=== PATIENT | male | born 1990 | race African-American/Black ===

== ENCOUNTER 2025-04-24 14:19 | Emergency (ER) | payer SELFPAY ==
[~2025-04-24 14:19] MED LIST: Iopamidol-370 76% 500 ML MDV (1 ML CHARGE) ONE
[2025-04-24] MEDS ORDERED: Ketorolac Tromethamine 30 MG (1 mL) VIAL ONE (16:16)
[2025-04-24 17:05] LABS: #Basophils 0.07 10x3/uL (0.0-0.2); #Eosinophils 0.38 10x3/uL (0.0-0.7); #Monocytes 0.85 10x3/uL (0.11-0.59); #Neutrophils 5.56 10x3/uL (1.40-6.50); %Basophils 0.7 % (0.0-1.0); %Eosinophils 3.6 % (0.0-10.0); %Lymphocytes 34.6 % (21.0-51.0); %Monocytes 8.1 % (0.0-10.0); %Neutrophils 52.7 % (42.0-75.0); Hematocrit 42.4 % (42.0-52.0); Hemoglobin 14.1 g/dL (14.0-18.0); Mean Corpuscular Hemoglobin 33.6 pg (27.0-31.0); Mean Corpuscular Volume 101.0 fL (78.0-98.0); Platelet Count 186 10x3/uL (130-400); Red Blood Cell (RBC) Count 4.20 mill/uL (4.70-6.10); White Blood Cell (WBC) Count 10.54 10x3/uL (4.8-10.8)
[2025-04-24 17:22] LABS: ALT (SGPT) 7 U/L (Less than 45); AST (SGOT) 18 U/L (11-34); Albumin 4.3 g/dL (3.1-4.5); Alkaline Phosphatase 73 U/L (40-110); Anion Gap 16 mmol/L (10-20); BUN (Urea Nitrogen) 11 mg/dL (8.9-20.6); Bilirubin, Total 0.5 mg/dL (0.3-1.2); Calc. Creatinine Clearance 0 mL/min (70-130); Calcium 8.9 mg/dL (7.8-10.44); Carbon Dioxide 21 mmol/L (22-29); Chloride 106 mmol/L (98-107); Globulin 3.1 g/dL (2.4-3.5); Glucose 77 mg/dL (70-105); Potassium 3.4 mmol/L (3.5-5.1); Sodium 140 mmol/L (136-145)
[2025-04-24] MEDS ORDERED: Lidocaine 1% PF 5 ML VIAL ONE (18:29)
== END 2025-04-24 18:59 | disposition home or self-care (01) ==
LOC: ERS 14:19
DX: L02.11 Cutaneous abscess of neck (principal); F17.290 Nicotine dependence, other tobacco product, uncomplicated
CPT/HCPCS: 10060; 70491; 80053; 83605; 85025; 96374; J1885; Q9967

== ENCOUNTER 2025-05-08 18:41 | Emergency (ER) | payer SELFPAY | END 2025-05-08 19:43 | LOC: ERS 18:41 → EEVIPCON 18:41 → ERS 19:43 | DX: Z02.89 Encounter for other administrative examinations (principal); F17.290 Nicotine dependence, other tobacco product, uncomplicated | CPT/HCPCS: 99282 ==